=== PATIENT | female | born 1970 | race Hispanic/Latino ===

== ENCOUNTER → 2022-06-23 | Outpatient (CLI) | payer BC | END | disposition home or self-care (01) | LOC: RAH 09:02 | PROVIDERS: ATTEND Family Medicine | DX: R16.0 Hepatomegaly, not elsewhere classified (principal); K57.30 Diverticulosis of large intestine without perforation or abscess without bleeding; R10.9 Unspecified abdominal pain; K76.0 Fatty (change of) liver, not elsewhere classified; N20.0 Calculus of kidney | CPT/HCPCS: 74176 ==

== ENCOUNTER 2024-08-13 09:34 | Emergency (ER) | payer BC ==
[~2024-08-13] VITALS: Ht 154.9 cm; Wt 73.0 kg
--- NOTE | 2024-08-13 10:11 | ERN ---
General Chief Complaint: Pelvic Pain Stated Complaint: PELVIC PAIN Time Seen by MD: 09:45 Source: patient, family History of Present Illness Initial Comments PATIENT IS A 54-YEAR-OLD FEMALE COMING IN TO BE EVALUATED FOR VAGINAL PAIN. PER PATIENT THIS PAIN BEGAN THREE DAYS AGO. SHE STATES THAT THE PAIN IS LOCALIZED TO THE VAGINAL POSTERIOR REGION. NO FEVER NO CHILLS NAUSEA AND VOMITING. PATIENT STATES THAT THE PAIN BEGAN SUDDENLY. Allergies: Coded Allergies: No Known Drug Allergies (Unverified Allergy, Unknown, 08/13/24) Past Medical History Past Medical History: No Pertinent History Past Surgical History: Hysterectomy, ROS Dictation CONSTITUTIONAL: NO CHILLS, NO FEVER, NO WEAKNESS, NO DIAPHORESIS, NO MALAISE. HEAD/FACE: NO SIGNS OF TRAUMA. EENT: NO EYE PAIN, NO BLURRED VISION, NO TEARING, NO DOUBLE VISION, NO EAR PAIN, NO EAR DISCHARGE, NO NOSE PAIN, NO NASAL CONGESTION, NO THROAT PAIN, NO THROAT SWELLING, NO MOUTH PAIN. RESPIRATORY: NO COUGH, NO ORTHOPNEA, NO SOB, NO STRIDOR, NO WHEEZING. CARDIOVASCULAR: NO CHEST PAIN, NO EDEMA, NO PALPITATIONS, NO SYNCOPE. GASTROINTESTINAL/ABDOMINAL: NO ABDOMINAL PAIN, NO CONSTIPATION, NO DIARRHEA, NO NAUSEA, NO VOMITING. GENITOURINARY: NO ABNORMAL DISCHARGE, NO DYSURIA, NO FREQUENT URINATION, NO HEMATURIA. COMPLAINTS OF PAIN IN THE GENITALS. MUSCULOSKELETAL: NO BACK PAIN, NO GOUT, NO JOINT PAIN, NO JOINT SWELLING, NO MUSCLE PAIN, NO MUSCLE STIFFNESS, NO NECK PAIN. INTEGUMENTARY: NO CHANGE IN COLOR, NO CHANGE IN HAIR/NAILS, NO DRYNESS, NO LESION, NO LUMPS, NO RASH. NEUROLOGICAL/PSYCH: NO ANXIETY, NOT DEPRESSED, NO EMOTIONAL PROBLEM, NO HEADACHE, NO NUMBNESS, NO PRE-EXISTING DEFICIT, NO HISTORY OF SEIZURES, NO TREMORS, NO WEAKNESS. HEMATOLOGIC/LYMPHATIC: NOT ANEMIC, NO HISTORY OF BLOOD CLOTS, NO APPARENT BLE EDING, NO BRUISING, GLANDS NOT SWOLLEN. ALL SYSTEMS NEGATIVE, EXCEPT NOTED. Physical Exam Physical Exam Dictation VITAL SIGNS: REVIEWED. GENERAL APPEARANCE: ALERT, ORIENTED X3, NO ACUTE DISTRESS, OBESE. HEAD AND FACE: NON-TRAUMATIC. EYES: PERRL, PINK CONJUNCTIVAS, EYELID NO TRAUMA, ANTERIOR CHAMBER CLEAR. EARS: PINNAS INTACT AND NO SIGNS OF TRAUMA OR ERYTHEMA. EAR CANALS CLEAR AND NO DISCHARGE. TMS NO ERYTHEMA. NOSE: NO DISCHARGE, NO BLEEDING. OROPHARYNX: MOUTH NORMAL, TEETH NO CARIES, TONGUE PINK. PHARYNX CLEAR, NO ERYTHEMA. TONSILS NO EXUDATES, NO ABSCESSES NOTED. MUCOUS MEMBRANE MOIST. NECK: SUPPLE, NON-TENDER, NO THYROMEGALY, NO MASSES, NO JVD, NO BRUITS. BREAST: DEFERRED. CHEST: NO TENDERNESS, NO CREPITUS, NO PARADOXICAL MOVEMENT, NO RETRACTIONS. LUNGS: CLEAR, WELL-VENTILATED, SYMMETRIC, NO RALES, NO WHEEZING, NO RHONCHI, NO STRIDOR, GOOD BREATH SOUNDS BILATERALLY. HEART: REGULAR RATE, REGULAR RHYTHM, NO MURMUR, NO GALLOPS. VASCULAR: NO PERIPHERAL EDEMA. ABDOMEN: SOFT, POSITIVE BOWEL SOUNDS, NONDISTENDED, NO GUARDING, NONTENDER, NO REBOUND, NO MASSES NO HEPATOMEGALY, NO SPLENOMEGALY, NO ARENAS'S SIGN, NO HERNIAS. RECTAL: DEFERRED. GENITAL: RIGHT HAS BEEN MAJORA SWELLING CONSISTENT WITH BARTHOLIN CYST CHAPERONED BY NURSE. NEUROLOGICAL: NORMAL SPEECH, GROSS MOTOR FUNCTION INTACT, GROSS SENSORY FUNCTION INTACT. MUSCULOSKELETAL: NECK NONTENDER, FULL RANGE OF MOTION, BACK NONTENDER, FULL RANGE OF MOTION. EXTREMITIES: NONTENDER, FULL RANGE OF MOTION. SKIN: COLOR PINK, DRY, NO TURGOR, NO RASH, NO LACERATIONS, NO ABRASIONS, NO CONTUSIONS. LYMPHATICS: DEFERRED. Results Laboratory and Microbiology Labs Reviewed?: Yes MDM MDM: DIFFERENTIAL DIAGNOSIS: BARTHOLIN CYST, VAGINAL ABSCESS, 54-YEAR-OLD FEMALE COMING IN TO BE EVALUATED FOR VAGINAL PAIN. ON PHYSICAL EXAM PATIENT HAS A BARTHOLIN CYST PRESENT. BARTHOLIN CYST WAS ANESTHETIZED USING LIDOCAINE 1% 8 ML. GOOD ANESTHESIA ACHIEVED. USING A BLUNT NEEDLE BARTHOLIN CYST WAS DRAINED. PATIENT TOLERATED PROCEDURE WELL. WOUND WAS PACKED PATIENT WILL BE DISCHARGED IN STABLE CONDITION. ED Course Orders Procedure Category Date Status Time Urinalysis LAB 08/13/24 Logged W/Microscopic 10:01 Cbc With Differential LAB 08/13/24 Logged 10:01 Basic Metabolic Panel LAB 08/13/24 Logged 10:01 Aerobic Culture MARGARET 08/13/24 Transmitted 11:42 Anaerobic Culture MARGARET 08/13/24 Transmitted 11:42 Vital Signs Date Time Temp Pulse Resp B/P (MAP) Pulse Ox O2 Delivery O2 Flow Rate FiO2 08/13/24 10:01 97.9 67 20 102/57 99 Room Air* 0 21 Incision and Drainage Incision and Drainage : I & D Procedure: no betadine prep Progress 54-YEAR-OLD FEMALE COMING IN TO BE EVALUATED FOR VAGINAL PAIN. ON PHYSICAL EXAM RIGHT-SIDED BARTHOLIN CYST WAS PRESENT. USING LIDOCAINE 1% 8 ML WERE USED TO ANESTHETIZE AREA. ONCE ANESTHESIA WAS ACHIEVED USING A BLUNT NEEDLE BARTHOLIN CYST WAS DECOMPRESSED WOUND CULTURES COLLECTED, HEMOSTATS WERE USED TO DILATE WOUND AND IODOFORM PACKING WAS INTRODUCED. PATIENT TOLERATED PROCEDURE WELL. WE WILL BE DISCHARGED IN STABLE CONDITION ANTIBIOTICS WE PROVIDED. DX & DISP Disposition: Discharge Departure Impression: Primary Impression: Bartholin cyst Condition: Stable Scripts Cephalexin Monohydrate (Keflex) 500 Mg Cap 1 CAP PO TID for 10 Days, #30 CAP 0 Refills Prov: GINI ZAMBRANO MD 08/13/24 Additional Instructions: FOLLOW-UP WITH PRIMARY CARE PROVIDER IN 1 TO 2 DAYS. TAKE MEDICATIONS DIRECTED HERE IN THE EMERGENCY ROOM. OKAY TO CONTINUE HOME MEDICATIONS UNLESS OTHERWISE DISCUSSED DURING YOUR VISIT IN THE EMERGENCY ROOM TODAY. RETURN TO YOUR NEAREST EMERGENCY ROOM IF SYMPTOMS WORSEN OR IF THERE IS NO IMPROVEMENT. CALL 911 IF YOU NEED IMMEDIATE ASSISTANCE. TAKE TYLENOL [id number] NEEDED AND IF NO CONTRAINDICATIONS ARE PRESENT. INCREASE ORAL HYDRATION. A WOUND CULTURE OR URINE CULTURE WAS ORDERED HERE IN THE EMERGENCY ROOM DEPARTMENT PLEASE FOLLOW-UP WITH PRIMARY CARE PROVIDER AND ADVISE THEM TO GET REPEAT PORTS FROM OUR FACILITY. IF YOU HAD ANY LISSETH WRAP/SPLINTS THAT WERE APPLIED HERE, PLEASE DO NOT REMOVE THEM UNTIL YOU SEE YOUR PRIMARY CARE OR SPECIALTY. REFERRALS: Referrals: NONE (PCP) CELINA TSANG MD Time of Disposition: 11:44 GINI ZAMBRANO MD Aug 13, 2024 10:11
--- NOTE | 2024-08-13 11:41 | NUR ---
PT REFUSING BLOOD DRAW AT THIS TIME
[2024-08-13 11:43] VITALS: BP 151/64; PULSE 89; RESP 18; TEMP 98.7; O2SAT 100
[2024-08-13] MEDS ORDERED: CEPH500B PO (11:45)
== END 2024-08-13 11:56 | disposition home or self-care (01) ==
LOC: EDH 09:34
DX: N75.0 Cyst of Bartholin's gland (principal); Z90.710 Acquired absence of both cervix and uterus
CPT/HCPCS: 36415; 56420; 99283